=== PATIENT | male | born 1950 | race Caucasian/White ===

== ENCOUNTER 2017-10-12 05:54 | Day surgery (SDC) | payer MEDICARE ==
[2017-10-11 14:33] VITALS: BMI 36.5
[2017-10-12 06:42] LABS: #Eosinphils 0.5 thou/uL (0.0-0.7); #Lymphocytes 1.6 thou/uL (1.20-3.40); #Monocytes 0.6 thou/uL (0.11-0.59); #Neutrophils 6.6 thou/uL (1.40-6.50); %Basophils 0.1 % (0.0-1.0); %Eosinophils 5.7 % (0.0-10.0); %Lymphocytes 16.9 % (21.0-51.0); %Monocytes 6.8 % (0.0-10.0); %Neutrophils 70.5 % (42.0-75.0); Platelet Count 247 thou/uL (130-400); RBC Distribution Width 12.5 % (11.5-14.5); Red Blood Cell (RBC) Count 4.83 mill/uL (4.70-6.10); White Blood Cell (WBC) Count 9.4 thou/uL (4.8-10.8)
[2017-10-12] MEDS ORDERED: CEFAZOLIN/Water 2 GM/20 ML SYRINGE ONE (06:45)
[2017-10-12] MEDS ORDERED: Fentanyl 100 MCG/2 ML VIAL ONE ×2 (06:46→10:58)
[2017-10-12 06:50] LABS: INR-International Normal Ratio 0.9; PTT 24.9 SEC (22.9-36.1); Prothrombin Time 12.3 SEC (12.0-14.7)
[2017-10-12 06:54] LABS: Anion Gap 15 mmol/L (10-20); BUN (Urea Nitrogen) 26 mg/dL (8.4-25.7); Calc. Creatinine Clearance 101 mL/min (70-130); Calcium 10.5 mg/dL (7.8-10.44); Carbon Dioxide 23 mmol/L (23-31); Chloride 103 mmol/L (98-107); Estimated GFR-MDRD 69; Glucose 163 mg/dL (80-115); Potassium 4.6 mmol/L (3.5-5.1); Sodium 136 mmol/L (136-145)
[2017-10-12] MEDS ORDERED: Sodium Chloride 0.9% 10 ML ONE (08:03)
[2017-10-12] MEDS ORDERED: Thrombin 5000 UNITS/5 ML VIAL ONE (08:03)
[2017-10-12] MEDS ORDERED: Bacitracin Zinc Ointment 30 gm TUBE ONE (09:55)
[2017-10-12] MEDS ORDERED: Lidocaine 1% PF 5 ML VIAL ONE (10:36)
[2017-10-12] MEDS ORDERED: Propofol 200 MG/20 ML VIAL ONE (10:36)
[2017-10-12] MEDS ORDERED: ePHEDrine/0.9% NaCl/PF SYRINGE 50 mg/10 ml ONE (10:36)
[2017-10-12] MEDS ORDERED: Ondansetron HCl/PF 4 MG/2 ML Vial ONE (10:36)
[2017-10-12] MEDS ORDERED: PHENYLEPHRINE-NS 100 MCG/ML 10 ML SYRINGE ONE (10:36)
[2017-10-12] MEDS ORDERED: Glycopyrrolate 0.2 MG/ML 5 ML SYRINGE ONE (10:36)
[2017-10-12] MEDS ORDERED: Mag-Al 1200 mg/1200 mg/30 ML UDCUP PO PRN (10:55)
[2017-10-12] MEDS ORDERED: Promethazine HCl 25 MG/ML VIAL IM PRN (10:55)
[2017-10-12] MEDS ORDERED: Acetaminophen 325 MG TAB PO PRN (10:55)
[2017-10-12] MEDS ORDERED: Milk Of Magnesia 30 ML UDCUP PO PRN (10:55)
[2017-10-12] MEDS ORDERED: Bisacodyl 10 MG SUPP PR PRN (10:55)
[2017-10-12] MEDS ORDERED: Ondansetron HCl/PF 4 MG/2 ML Vial IVP PRN (10:55)
[2017-10-12] MEDS ORDERED: Acetaminophen/Codeine 30-300mg Tablet PO PRN (10:55)
[2017-10-12] MEDS ORDERED: Fleet Enema 133 ML BOT PR PRN (10:55)
[2017-10-12] MEDS ORDERED: traMADol HCl 50 MG TAB PO PRN (10:55)
[2017-10-12] MEDS: Sodium Chloride 0.9% 1,000 ML IV SCH ×2 (14:38→17:19)
--- NOTE | 2017-10-12 14:54 | OP ---
SURGEON: Robert Pelayo M.D. TELECOM ASSISTANT: Ke Carter PA-C. PREPROCEDURE DIAGNOSES: Low back and right leg pain with lumbar stenosis. POSTPROCEDURE DIAGNOSES: Low back and right leg pain with identified during the surgery, right L5 pa rs fracture (not iatrogenic) with lumbar stenosis and bilateral L5 and right S1 radiculopathy. PROCEDURE: 1. L4-L5 laminectomy, partial facetectomies and foraminotomies over the L4-L5 nerve roots. 2. Right L5-S1 hemilaminotomy, foraminotomy for decompression of the right S1 nerve root and assessm ent of whether diskectomy necessary. 3. Identification of pars fracture on the right L5 segment not identified preoperatively and not iat rogenic with in situ fusion at the L5-S1 segment for stabilization of identified L5 pars fracture to prevent instability. DESCRIPTION OF PROCEDURE: After informed consent was obtained from the patient, the patient brought to OR 5. Proper patient pause and identification was carried out. He was placed under excellent gen eral endotracheal anesthesia and positioned prone on the operating room table. All appropriate point s were padded. We identified the L4, L5, S1 dorsal spines. A linear raf was made in this region. Following proper patient pause and identification, the wound was then opened with a combination of sh venita, monopolar and blunt dissection. The L4-L5 and right S1 segments were exposed. Localization franki m confirmed our area of interest. It was quite evident following the exposure, but not evident on pr eoperative imaging as the patient had a right L5 pars fracture. Again, this was not iatrogenic. We did not have a CT scan prior to surgery to identify this, but I suspect this is contributing to the p atient's pain. He may have a very mild grade I spondylolisthesis, but this can be present certainly in the absence of pars fractures and particularly in the elderly. Nevertheless, following a localiza tion film we then performed an L4-L5 laminectomies, partial facetectomies and foraminotomies over the L4-L5 nerve roots. I then did a right L5-S1 hemilaminotomy, foraminotomy, and assessment to see if the diskectomy needed to be done, but I did not think that following the laminectomy and right-sided hemilaminotomy and foraminotomy. I then turned our attention to identification of the pars fracture. I drilled out away any soft tissue material from the pars fracture and packed local bone autograft and allograft in this region for arthrodesis for in situ fusion at the L5-S1 segment to prevent insta bility. Copious irrigation occurred throughout as did maximizing hemostasis. The wound was then darryl sed in anatomic layers following the sprinkling of vancomycin powder. The patient then emerged from anesthesia. I should note that the plan was just lumbar laminectomy and lumbar hemilaminotomy. The identificatio n of the pars fracture intraoperatively in my opinion necessitated stabilizing this with arthrodesis and as such that is why an in situ fusion was performed.
[2017-10-12] MEDS: Gabapentin 300 MG CAP PO SCH ×2 (15:06→21:01)
[2017-10-12] MEDS: CEFAZOLIN/Water 2 GM/20 ML SYRINGE SLOW IVP SCH ×2 (15:06→21:00)
[2017-10-12] MEDS: HYDROcodone/Acetaminophen 7.5/325 mg Tablet PO PRN ×2 (17:20→21:00)
[2017-10-12] MEDS ORDERED: Morphine 2 MG/ML SYRINGE SLOW IVP PRN (18:00)
--- NOTE | 2017-10-12 19:53 | EKG ---
Test Reason : PREOP Blood Pressure : / mmHG Vent. Rate : 071 BPM Atrial Rate : 071 BPM P-R Int : 146 ms QRS Dur : 082 ms QT Int : 398 ms P-R-T Axes : 053 -20 050 degrees QTc Int : 432 ms Normal sinus rhythm Normal ECG No previous ECGs available Confirmed by RAQUEL DUNCAN, DR. Milian ([id number]) on 10/12/2017 7:53:11 PM Referred By: ASTER Confirmed By:DR. Rukhsana GARCÍA MD
[2017-10-12] MEDS: tiZANidine HCl 4 MG TAB PO PRN (21:00)
[2017-10-12] MEDS: metFORMIN 500 MG TAB PO SCH (21:01)
[2017-10-13] MEDS: HYDROcodone/Acetaminophen 7.5/325 mg Tablet PO PRN ×2 (04:07→12:17)
[2017-10-13] MEDS: tiZANidine HCl 4 MG TAB PO PRN ×2 (04:07→12:17)
[2017-10-13] MEDS ORDERED: Atorvastatin Calcium 10 MG TAB PO SCH (09:00)
[2017-10-13] MEDS ORDERED: Tamsulosin HCl 0.4 MG CAP PO SCH (09:00)
[2017-10-13] MEDS ORDERED: Losartan 25 MG TAB PO SCH (09:00)
[2017-10-13] MEDS ORDERED: Amlodipine 5 MG TAB PO SCH (09:00)
--- NOTE | 2017-10-13 09:36 | PRG ---
DATE OF SERVICE: 10/13/2017 This is a subsequent inpatient progress note. SUBJECTIVE: Mr. Tellez is now postoperative day #1, having undergone a L4-L5 laminectomy with right L5-S1 hemilaminotomy and in situ fusion for L5 pars defect on the right. The patient is doing well t elli. He has no leg complaints. He does have burning in his incision site that he states is slowly improving. He has tolerated a solid diet and has walked with a walker down the cerrato. He has had abelardo e urinary retention, although he has been able to urinate. His neurologic exam remains at neurologic baseline with good strength in the bilateral lower extremit ies and intact sensation to light touch. At this time, I would like the patient to have a bladder sc an and in and out catheterization should he be retaining more than 500 mL of urine. I would like him to urinate at least one more time before dismissal, but we will plan for dismissal later today. I irasema arteaga discussed this with the patient and his significant other at bedside and they are agreeable for h im to go home once his urination issues have improved. Again, I will check back later this afternoon . We will plan for discharge later today. This is Ke Carter PA-C dictating for Dr. Robert Pelayo.
[2017-10-13] MEDS: metFORMIN 500 MG TAB PO SCH (09:38)
[2017-10-13] MEDS: Gabapentin 300 MG CAP PO SCH (09:38)
[2017-10-13 12:16] VITALS: TEMP 98.6
[2017-10-13 14:27] VITALS: BP 132/75
== END 2017-10-13 14:28 | disposition home or self-care (01) ==
LOC: SDC 05:54 → SURG B 12:29 → SDC 10-13 14:28
PROVIDERS: ATTEND Surgery
PROC: 0SG307J Fusion of Lumbosacral Joint with Autologous Tissue Substitute, Posterior Approach, Anterior Column, Open Approach (ICD-10-PCS; principal; 2017-10-12)
PROC: 01NB0ZZ Release Lumbar Nerve, Open Approach (ICD-10-PCS; 2017-10-12)
DX: M43.06 Spondylolysis, lumbar region (principal); M48.061 Spinal stenosis, lumbar region without neurogenic claudication; M54.16 Radiculopathy, lumbar region; I10 Essential (primary) hypertension; E78.5 Hyperlipidemia, unspecified; F17.220 Nicotine dependence, chewing tobacco, uncomplicated; R06.83 Snoring; Z79.84 Long term (current) use of oral hypoglycemic drugs; Z79.899 Other long term (current) drug therapy; Z90.49 Acquired absence of other specified parts of digestive tract; Z87.442 Personal history of urinary calculi
CPT/HCPCS: 36415; 36416; 76001; 80048; 85025; 85610; 85730; 93005; 93010; A4216; J2001; J2270; J2405; J2704; J3010; J3370; J3490